=== PATIENT | male | born 1980 | race Caucasian/White ===

== ENCOUNTER 2020-11-06 09:33 | Emergency (ER) | payer BC, SELFPAY ==
[~2020-11-06] VITALS: Ht 175.3 cm; Wt 81.5 kg
[~2020-11-06 09:33] MED LIST: LASI80TA3 PO; SPIR100T3 PO
[2020-11-06 11:32] LABS: BASO % 0.6 % (0.0-1.0); EOS # 0.1 10^3/uL (0.0-0.5); EOS % 0.8 % (0.0-3.0); HEMATOCRIT 32.9 % (42.0-52.0); LYMPH # 0.5 10^3/uL (1.5-5.0); LYMPH % 8.5 % (24.0-44.0); MEAN CORPUSCULAR HEMOGLOBIN 32.4 pg (27.0-33.0); MEAN CORPUSCULAR HGB CONC 33.4 g/dl (32.0-36.5); MEAN CORPUSCULAR VOLUME 97.1 fl (80.0-96.0); MONO # 0.7 10^3/uL (0.0-0.8); NEUTROPHILS # 4.9 10^3/uL (1.5-8.5); NEUTROPHILS % 78.6 % (36.0-66.0); PLATELET COUNT, AUTOMATED 136 10^3/uL (150-450); RED BLOOD COUNT 3.39 10^6/uL (4.30-6.10); WHITE BLOOD COUNT 6.2 10^3/uL (4.0-10.0)
[2020-11-06 12:04] LABS: BLOOD UREA NITROGEN 11 MG/DL (7-18); CALCIUM LEVEL 7.6 MG/DL (8.5-10.1); CARBON DIOXIDE LEVEL 23 MEQ/L (21-32); CHLORIDE LEVEL 105 MEQ/L (98-107); CREATININE FOR GFR 0.61 MG/DL (0.70-1.30); GLOMERULAR FILTRATION RATE > 60.0 (>60); GLUCOSE, FASTING 91 MG/DL (70-100); POTASSIUM SERUM 4.4 MEQ/L (3.5-5.1); SODIUM LEVEL 134 MEQ/L (136-145)
[2020-11-06 12:05] LABS: ALBUMIN 2.6 GM/DL (3.2-5.2); ALT/SGPT 41 U/L (12-78); BILIRUBIN,DIRECT 1.5 MG/DL (0.0-0.2); BILIRUBIN,TOTAL 2.5 MG/DL (0.2-1.0); LIPASE 295 U/L (73-393); TOTAL PROTEIN 6.7 GM/DL (6.4-8.2)
[2020-11-06] MEDS ORDERED: ISOVUE-370 76% 100ML VIAL As Ordered ONE (12:08)
--- NOTE | 2020-11-06 12:41 | REP ---
INDICATION: ascites/pain. COMPARISON: None. TECHNIQUE: Abdomen/pelvis CT with IV contrast, without bowel contrast. FINDINGS: There is a huge volume of abdominal and pelvic ascites. The hepatic margin has a nodular appearance compatible with cirrhosis. The portal vein measures 2.1 cm in diameter compatible with portal hypertension. No hepatic masses are identified. The visualized lower lung sheppard demonstrate atelectasis inferiorly in the right middle lobe, inferiorly in the lingula and in the left lower lobe. There are no pleural effusions. The gallbladder is packed with numerous tiny calculi. No biliary duct dilatation is identified. The pancreas and spleen are unremarkable. The adrenals and kidneys are unremarkable except for a punctate nonobstructive right renal lower pole calculus. The abdominal aorta is unremarkable. There is no periaortic adenopathy, mass or retroperitoneal fluid. Pelvis: There is a large volume of ascites. The bladder is unremarkable. There is no adenopathy. There is no bowel distention or obstruction. There is diffuse wall thickening of the small bowel, likely secondary to the ascites. IMPRESSION: Large volume of ascites. Hepatic cirrhosis. Distended portal vein compatible with portal hypertension. Innumerable tiny calculi packing the gallbladder. No biliary duct dilatation. Nonobstructive right renal lower pole punctate calculus. Focal zones of atelectasis the visualized lower lung sheppard. Wall thickening of the small bowel, likely secondary to the ascites. <Electronically signed by Noel Morales > 11/06/20 [id number]
[2020-11-06] MEDS ORDERED: SODIUM BICARBONATE 8.4% INJ 50MEQ 50 ML VIAL As Ordered ONE (16:30)
[2020-11-06 19:51] VITALS: BP 115/71
[2020-11-06 20:24] VITALS: BP 113/62
--- NOTE | 2020-11-07 07:51 | REP ---
INDICATION: ascites The patient has a history of ascites COMPARISON: None. TECHNIQUE: The procedure was performed by LYNDON Greenberg, under the direct supervision of Dr. Rajan The risks and benefits of the procedure were explained to the patient and an informed consent was obtained both verbally and written. Directly prior to the start of the procedure a formal time-out was completed in the procedure room. The largest pocket of fluid was localized in the left flank using ultrasound guidance. The skin was prepped and draped in a sterile fashion. Eleven ML of buffered lidocaine was used as a local anesthetic. An 8-Scottish multi side-hole catheter was inserted using trocar technique. FINDINGS: 19721 mL of yellow ascites was removed and discarded. The patient tolerated the procedure well and there were no immediate complications. After the appropriate amount of monitored convalescence, the patient was discharged from the department. IMPRESSION: Ultras[place] [address] mL of yellow ascites. <Electronically signed by Loni Langston > 11/07/20 0744 <Electronically signed by Domingo Rajan > 11/07/20 0745
== END 2020-11-06 20:44 | disposition home or self-care (01) ==
LOC: M ED 09:33
DX: R18.8 Other ascites (principal); R56.9 Unspecified convulsions; K74.60 Unspecified cirrhosis of liver; N20.0 Calculus of kidney; Z91.030 Bee allergy status
CPT/HCPCS: 36415; 74177; 80048; 80076; 83690; 85025; 96365; 99285; P9047; Q9967; U0002

== ENCOUNTER → 2020-11-21 | Outpatient (CLI) | payer BC ==
[~2020-11-21] MED LIST changes: +SODIUM BICARBONATE 8.4% INJ 50MEQ 50 ML VIAL As Ordered ONE
[2020-11-21 11:34] LABS: BASO # 0.1 10^3/uL (0.0-0.2); BASO % 0.8 % (0.0-1.0); EOS # 0.1 10^3/uL (0.0-0.5); EOS % 1.3 % (0.0-3.0); HEMOGLOBIN 10.8 g/dl (13.5-17.5); LYMPH # 0.6 10^3/uL (1.5-5.0); LYMPH % 8.1 % (24.0-44.0); MEAN CORPUSCULAR HEMOGLOBIN 32.9 pg (27.0-33.0); MEAN CORPUSCULAR HGB CONC 34.8 g/dl (32.0-36.5); MEAN CORPUSCULAR VOLUME 94.5 fl (80.0-96.0); MONO # 0.9 10^3/uL (0.0-0.8); MONO % 12.1 % (2.0-8.0); NEUTROPHILS # 5.5 10^3/uL (1.5-8.5); PLATELET COUNT, AUTOMATED 152 10^3/uL (150-450); RED BLOOD COUNT 3.28 10^6/uL (4.30-6.10); WHITE BLOOD COUNT 7.2 10^3/uL (4.0-10.0)
[2020-11-21 11:46] LABS: INR 1.58; PROTHROMBIN TIME 19.3 SECONDS (12.7-14.5)
[2020-11-21 11:47] LABS: PARTIAL THROMBOPLASTIN TIME 38.9 SECONDS (25.9-37.0)
[2020-11-21 12:07] LABS: ALBUMIN 2.1 GM/DL (3.2-5.2); BILIRUBIN,DIRECT 1.3 MG/DL (0.0-0.2); TOTAL PROTEIN 6.9 GM/DL (6.4-8.2)
[2020-11-21 12:36] VITALS: BP 117/67
[2020-11-21 13:33] LABS: APPEARANCE, BODY FLUID CLEAR (CLEAR); ASCITES FL COLOR YELLOW (COLORLESS); SOURCE, BODY FLUID ASCITES
[2020-11-21 14:12] LABS: SOURCE, BODY FLUID ALBUMIN ASCITES; SOURCE, BODY FLUID TOT PROTEIN ASCITES; TOTAL PROTEIN, BODY FLUID 0.8 G/DL (NOT ESTABLISHED)
--- NOTE | 2020-11-21 15:58 | REP ---
INDICATION: ASCITES The patient has a history of ascites COMPARISON: None. TECHNIQUE: The procedure was performed by LYNDON Greenberg, under the direct supervision of Dr. Rajan The risks and benefits of the procedure were explained to the patient and an informed consent was obtained both verbally and written. Directly prior to the start of the procedure a formal time-out was completed in the procedure room. The largest pocket of fluid was localized in the right flank using ultrasound guidance. The skin was prepped and draped in a sterile fashion. Eleven ML of buffered lidocaine was used as a local anesthetic. An 8-Persian multi side-hole catheter was inserted using trocar technique. FINDINGS: 91481 mL of ascites was removed in total, 1300 was sent to the laboratory for further analysis, and the remaining was discarded. The patient tolerated the procedure well and there were no immediate complications. After the appropriate amount of monitored convalescence, the patient was discharged from the department. IMPRESSION: [place] [address] mL of yellow ascites. <Electronically signed by Loni Langston > 11/21/20 1542 <Electronically signed by Domingo Rajan > 11/21/20 2596
== END ==
LOC: M IRPRO 10:46
DX: K70.31 Alcoholic cirrhosis of liver with ascites (principal)
CPT/HCPCS: 49083; 80076; 82042; 84157; 85025; 85610; 85730; 87070; 87205; 89051; 96374; P9047

== ENCOUNTER → 2020-12-07 | Outpatient (CLI) | payer BC ==
[~2020-12-07] MED LIST changes: +LIDOCAINE 1% MDV 20ML VIAL As Ordered ONE
[2020-12-07 15:36] LABS: APPEARANCE, BODY FLUID CLEAR (CLEAR); ASCITES FL COLOR YELLOW (COLORLESS); SOURCE, BODY FLUID ASCITES
[2020-12-07 15:44] LABS: SOURCE, BODY FLUID ALBUMIN ASCITES; SOURCE, BODY FLUID TOT PROTEIN ASCITES
[2020-12-07 16:59] VITALS: BP 121/73
--- NOTE | 2020-12-07 17:25 | REP ---
INDICATION: ASCITES The patient has a history of ascites COMPARISON: None. TECHNIQUE: The procedure was performed by Dr. Stapleton, under the personal supervision of LYNDON Greenberg, under the direct supervision of Dr. Mohan The risks and benefits of the procedure were explained to the patient and an informed consent was obtained both verbally and written. Directly prior to the start of the procedure a formal time-out was completed in the procedure room. The largest pocket of fluid was localized in the right flank using ultrasound guidance. The skin was prepped and draped in a sterile fashion. Eleven ML of buffered lidocaine was used as a local anesthetic. An 8-Greek multi side-hole catheter was inserted using trocar technique. FINDINGS: 00925 mL of yellow ascites was removed in total, 1250 mL was sent to the laboratory for further analysis, and the rest was discarded. The patient tolerated the procedure well and there were no immediate complications. After the appropriate amount of monitored convalescence, the patient was discharged from the department. IMPRESSION: [place]tras[place] [address] mL of yellow ascites. <Electronically signed by Loni Langston > 12/07/20 1650 <Electronically signed by Noel Mohan > 12/07/20 [id number]
== END ==
LOC: M IRPRO 13:07
DX: K70.31 Alcoholic cirrhosis of liver with ascites (principal)
CPT/HCPCS: 49083; 82042; 84157; 87070; 87205; 89051; 96365; P9047

== ENCOUNTER → 2020-12-26 | Outpatient (CLI) | payer BC ==
[2020-12-26] VITALS (7 sets, daily range): BP systolic 95–104; BP diastolic 51–62
[~2020-12-26] MED LIST changes: +ACID1TAB PO; +AMOX875T2 PO; +FURO40TA2 PO; +LACT10SO3 PO; +LEVE250T5 PO; -LIDOCAINE 1% MDV 20ML VIAL As Ordered ONE; +POTA1TAB14 PO; -SODIUM BICARBONATE 8.4% INJ 50MEQ 50 ML VIAL As Ordered ONE; +THERTAB21 PO; +VITA50TA47 PO
[2020-12-26 10:26] LABS: BASO # 0.1 10^3/uL (0.0-0.2); BASO % 1.3 % (0.0-1.0); EOS # 0.1 10^3/uL (0.0-0.5); EOS % 1.8 % (0.0-3.0); HEMATOCRIT 23.3 % (42.0-52.0); HEMOGLOBIN 7.8 g/dl (13.5-17.5); LYMPH # 0.6 10^3/uL (1.5-5.0); LYMPH % 12.3 % (24.0-44.0); MEAN CORPUSCULAR HEMOGLOBIN 34.1 pg (27.0-33.0); MEAN CORPUSCULAR HGB CONC 33.5 g/dl (32.0-36.5); MEAN CORPUSCULAR VOLUME 101.7 fl (80.0-96.0); MONO # 0.7 10^3/uL (0.0-0.8); MONO % 15.5 % (2.0-8.0); NEUTROPHILS % 68.2 % (36.0-66.0); PLATELET COUNT, AUTOMATED 104 10^3/uL (150-450); RED BLOOD COUNT 2.29 10^6/uL (4.30-6.10); WHITE BLOOD COUNT 4.5 10^3/uL (4.0-10.0)
[2020-12-26 10:37] LABS: INR 2.41; PROTHROMBIN TIME 26.7 SECONDS (12.7-14.5)
[2020-12-26 10:38] LABS: PARTIAL THROMBOPLASTIN TIME 48.4 SECONDS (25.9-37.0)
[2020-12-26 10:45] LABS: ALBUMIN 3.3 GM/DL (3.2-5.2); BILIRUBIN,DIRECT 3.2 MG/DL (0.0-0.2); BILIRUBIN,TOTAL 5.9 MG/DL (0.2-1.0); TOTAL PROTEIN 6.5 GM/DL (6.4-8.2)
[2020-12-26 11:49] LABS: SOURCE, BODY FLUID ASCITES
[2020-12-26 11:50] LABS: APPEARANCE, BODY FLUID CLOUDY (CLEAR); ASCITES FL COLOR YELLOW (COLORLESS)
[2020-12-26 11:59] LABS: SOURCE, BODY FLUID ALBUMIN ASCITES; SOURCE, BODY FLUID TOT PROTEIN ASCITES; TOTAL PROTEIN, BODY FLUID 2.1 G/DL (NOT ESTABLISHED)
--- NOTE | 2020-12-26 16:43 | REP ---
INDICATION: ALCHOLIC CIRRHOSIS OF LIVER W/ASCITES. COMPARISON: None. TECHNIQUE: The procedure was performed under the direct supervision of Dr. Rajan. The risks and benefits of the procedure were explained to the patient and informed consent was obtained. The largest pocket of fluid was localized in the right flank using ultrasound guidance. The skin was prepped and draped in a sterile fashion. 5 mL of 1% lidocaine was used as a local anesthetic. An 8-Georgian multi side-hole catheter was inserted using trocar technique.6750 mL of cortney fluid was withdrawn with a sample sent to the lab for analysis. Estimated blood loss: Less than 1 mL The patient tolerated the procedure well and there were no immediate complications. After the appropriate amount of monitored convalescence, the patient was discharged from the department. FINDINGS: None IMPRESSION: Ultrasound-guided paracentesis [id number] mL of cortney fluid. <Electronically signed by Loki Larios > 12/26/20 7247 <Electronically signed by Domingo Rajan > 12/26/20 [id number]
== END ==
LOC: M IRPRO 09:15
PROVIDERS: ATTEND Internal Medicine Gastroenterology
DX: K70.31 Alcoholic cirrhosis of liver with ascites (principal)
CPT/HCPCS: 49083; 80076; 82042; 84157; 85025; 85610; 85730; 87070; 87205; 89051; 96365; P9047

== ENCOUNTER → 2021-01-03 | Outpatient (CLI) | payer BC ==
[~2021-01-03] MED LIST changes: +LIDOCAINE 1% MDV 20ML VIAL As Ordered ONE; +SODIUM BICARBONATE 8.4% INJ 50MEQ 50 ML VIAL As Ordered ONE
[2021-01-03 11:03] VITALS: BP 104/55
[2021-01-03 11:19] VITALS: BP 97/55
[2021-01-03 11:50] VITALS: BP 97/56
[2021-01-03 12:42] VITALS: BP 100/56
--- NOTE | 2021-01-03 12:54 | REP ---
INDICATION: CIRRHOSIS The patient has a history of ascites COMPARISON: None. TECHNIQUE: The procedure was performed by LYNDON Greenberg, under the direct supervision of Dr. Rajan The risks and benefits of the procedure were explained to the patient and an informed consent was obtained both verbally and written. Directly prior to the start of the procedure a formal time-out was completed in the procedure room. The largest pocket of fluid was localized in the right flank using ultrasound guidance. The skin was prepped and draped in a sterile fashion. Eleven ML of buffered lidocaine was used as a local anesthetic. An 8-Frisian multi side-hole catheter was inserted using trocar technique. FINDINGS: 8550 mL of cloudy yellow ascites was removed and discarded. The patient tolerated the procedure well and there were no immediate complications. After the appropriate amount of monitored convalescence, the patient was discharged from the department. IMPRESSION: Ultrasound-guided paracentesis with the removal of 8550 mL of cloudy yellow ascites. <Electronically signed by Loni Langston > 01/03/21 1203 <Electronically signed by Domingo Rajan > 01/03/21 1257
== END ==
LOC: M IRPRO 09:35
PROVIDERS: ATTEND Internal Medicine Gastroenterology
DX: K70.31 Alcoholic cirrhosis of liver with ascites (principal)
CPT/HCPCS: 49083; 96365; P9047

== ENCOUNTER → 2021-01-10 | Outpatient (CLI) | payer BC ==
[~2021-01-10] MED LIST changes: -LIDOCAINE 1% MDV 20ML VIAL As Ordered ONE; -SODIUM BICARBONATE 8.4% INJ 50MEQ 50 ML VIAL As Ordered ONE
[2021-01-10 14:21] VITALS: BP 108/57
[2021-01-10 14:32] VITALS: BP 101/56
--- NOTE | 2021-01-10 17:30 | REP ---
INDICATION: CIRRHOSIS W/ ASCITES. COMPARISON: None. TECHNIQUE: The procedure was performed under the direct supervision of Dr. Mohan. The risks and benefits of the procedure were explained to the patient and informed consent was obtained. The largest pocket of fluid was localized in the left flank using ultrasound guidance. The skin was prepped and draped in a sterile fashion. 4 mL of 1% lidocaine was used as a local anesthetic. An 8-Yakut multi side-hole catheter was inserted using trocar technique.7500 mL of yellow fluid was withdrawn and discarded. Estimated blood loss: Less than 1 mL The patient tolerated the procedure well and there were no immediate complications. After the appropriate amount of monitored convalescence, the patient was discharged from the department. FINDINGS: None IMPRESSION: Ultrasound-guided paracentesis [id number] mL of yellow fluid. <Electronically signed by Loki Larios > 01/10/21 1436 <Electronically signed by Noel Mohan > 01/10/21 [id number]
== END ==
LOC: M IRPRO 12:51
PROVIDERS: ATTEND Internal Medicine Gastroenterology
DX: K70.31 Alcoholic cirrhosis of liver with ascites (principal)
CPT/HCPCS: 49083; 96365; P9047

== ENCOUNTER → 2021-01-21 | Outpatient (CLI) | payer BC ==
[2021-01-21 10:30] VITALS: BP 119/70
[2021-01-21 10:41] VITALS: BP 114/67
[2021-01-21 10:48] VITALS: BP 132/81
[2021-01-21 11:05] VITALS: BP 126/66
[2021-01-21 11:06] LABS: APPEARANCE, BODY FLUID HAZY (CLEAR); ASCITES FL COLOR YELLOW (COLORLESS); SOURCE, BODY FLUID ASCITES
[2021-01-21 11:20] VITALS: BP 138/65
[2021-01-21 11:29] LABS: SOURCE, BODY FLUID ALBUMIN ASCITES; SOURCE, BODY FLUID TOT PROTEIN ASCITES; TOTAL PROTEIN, BODY FLUID 0.6 G/DL (NOT ESTABLISHED)
[2021-01-21 11:32] VITALS: BP 134/63
--- NOTE | 2021-01-21 19:02 | REP ---
INDICATION: CIRRHOSIS W/ ASCITES The patient has a history of cirrhosis COMPARISON: None. TECHNIQUE: The procedure was performed by LYNDON Jon, under the direct supervision of Dr. Mohan The risks and benefits of the procedure were explained to the patient and an informed consent was obtained both verbally and written. Directly prior to the start of the procedure a formal time-out was completed in the procedure room. The largest pocket of fluid was localized in the right lower quadrant using ultrasound guidance. The skin was prepped and draped in a sterile fashion. Six ML of 1% lidocaine 10 mg/ml was used as a local anesthetic. An 8-Ethiopian multi side-hole catheter was inserted using trocar technique. FINDINGS: 12,350 mL yellow fluid were removed from the patient. The patient tolerated the procedure well and there were no immediate complications. After the appropriate amount of monitored convalescence, the patient was discharged from the department. IMPRESSION: Technically successful paracentesis yielding 12,350 mL of yellow fluid. This fluid was sent to the lab for further evaluation. <Electronically signed by Juana Escamilla > 01/21/21 [id number] <Electronically signed by Noel Mohan > 01/21/21 0119
== END ==
LOC: M IRPRO 08:43
PROVIDERS: ATTEND Internal Medicine Gastroenterology
DX: K70.31 Alcoholic cirrhosis of liver with ascites (principal)
CPT/HCPCS: 49083; 82042; 84157; 87070; 87205; 89051; 96365; P9047

== ENCOUNTER → 2021-01-30 | Outpatient (CLI) | payer BC ==
[2021-01-30 14:43] LABS: BASO % 0.5 % (0.0-1.0); EOS # 0.1 10^3/uL (0.0-0.5); EOS % 1.1 % (0.0-3.0); HEMATOCRIT 26.2 % (42.0-52.0); HEMOGLOBIN 8.6 g/dl (13.5-17.5); LYMPH # 0.6 10^3/uL (1.5-5.0); LYMPH % 6.8 % (24.0-44.0); MEAN CORPUSCULAR HEMOGLOBIN 33.1 pg (27.0-33.0); MEAN CORPUSCULAR HGB CONC 32.8 g/dl (32.0-36.5); MEAN CORPUSCULAR VOLUME 100.8 fl (80.0-96.0); MONO # 0.8 10^3/uL (0.0-0.8); MONO % 8.8 % (2.0-8.0); NEUTROPHILS # 7.2 10^3/uL (1.5-8.5); NEUTROPHILS % 81.9 % (36.0-66.0); PLATELET COUNT, AUTOMATED 132 10^3/uL (150-450); WHITE BLOOD COUNT 8.8 10^3/uL (4.0-10.0)
[2021-01-30 14:51] LABS: INR 1.81; PROTHROMBIN TIME 21.4 SECONDS (12.7-14.5)
[2021-01-30 14:52] LABS: PARTIAL THROMBOPLASTIN TIME 44.1 SECONDS (25.9-37.0)
[2021-01-30 15:10] LABS: ALBUMIN 2.4 GM/DL (3.2-5.2); BILIRUBIN,DIRECT 2.3 MG/DL (0.0-0.2); BILIRUBIN,TOTAL 3.6 MG/DL (0.2-1.0); TOTAL PROTEIN 6.3 GM/DL (6.4-8.2)
[2021-01-30 15:40] VITALS: BP 132/78
[2021-01-30 15:50] VITALS: BP 125/53
[2021-01-30 15:58] VITALS: BP 115/67
--- NOTE | 2021-01-30 17:26 | REP ---
INDICATION: ASCITES. COMPARISON: None. TECHNIQUE: The procedure was performed under the direct supervision of Dr. Mohan. The risks and benefits of the procedure were explained to the patient and informed consent was obtained. The largest pocket of fluid was localized in the left flank using ultrasound guidance. The skin was prepped and draped in a sterile fashion. 6 mL of 1% lidocaine was used as a local anesthetic. An 8-Lao multi side-hole catheter was inserted using trocar technique.7450 mL of yellow fluid was withdrawn with a sample sent to the lab for analysis. Estimated blood loss: Less than 1 mL The patient tolerated the procedure well and there were no immediate complications. After the appropriate amount of monitored convalescence, the patient was discharged from the department. FINDINGS: None IMPRESSION: Ultrasound-guided paracentesis [id number] mL of yellow fluid. <Electronically signed by Loki Larios > 01/30/21 1720 <Electronically signed by Noel Mohan > 01/30/21 1724
== END ==
LOC: M IRPRO 13:21
PROVIDERS: ATTEND Internal Medicine Gastroenterology
DX: K70.31 Alcoholic cirrhosis of liver with ascites (principal)
CPT/HCPCS: 36415; 49083; 80076; 85025; 85610; 85730; 96374; P9047

== ENCOUNTER → 2021-02-08 | Outpatient (CLI) | payer BC ==
[2021-02-08 14:02] VITALS: BP 99/67
[2021-02-08 14:11] VITALS: BP 126/84
[2021-02-08 14:22] VITALS: BP 125/76
[2021-02-08 14:28] VITALS: BP 108/66
[2021-02-08 15:10] LABS: SOURCE, BODY FLUID ALBUMIN ASCITES; SOURCE, BODY FLUID TOT PROTEIN ASCITES; TOTAL PROTEIN, BODY FLUID 0.7 G/DL (NOT ESTABLISHED)
[2021-02-08 15:16] LABS: APPEARANCE, BODY FLUID CLEAR (CLEAR); ASCITES FL COLOR PALE YELLOW (COLORLESS); SOURCE, BODY FLUID ASCITES
--- NOTE | 2021-02-08 16:34 | REP ---
INDICATION: CIRRHOSIS W/ ASCITES The patient has a history of ascites COMPARISON: None. TECHNIQUE: The procedure was performed by LYNDON Jon, under the direct supervision of Dr. Mohan The risks and benefits of the procedure were explained to the patient and an informed consent was obtained both verbally and written. Directly prior to the start of the procedure a formal time-out was completed in the procedure room. The largest pocket of fluid was localized in the right lower quadrant using ultrasound guidance. The skin was prepped and draped in a sterile fashion. Ten ML of 1% lidocaine 10 mg/ml was used as a local anesthetic. An 8-Qatari multi side-hole catheter was inserted using trocar technique. FINDINGS: The largest pocket of fluid was localized in the right lower quadrant using ultrasound. 7850 mL of clear yellow fluid was removed. The patient tolerated the procedure well and there were no immediate complications. After the appropriate amount of monitored convalescence, the patient was discharged from the department. IMPRESSION: Technically successful paracentesis yielding 8750 mL of clear yellow fluid <Electronically signed by Juana Escamilla > 02/08/21 1509 <Electronically signed by Noel Mohan > 02/08/21 1630
== END ==
LOC: M IRPRO 13:04
PROVIDERS: ATTEND Internal Medicine Gastroenterology
DX: K70.31 Alcoholic cirrhosis of liver with ascites (principal)
CPT/HCPCS: 49083; 82042; 84157; 87070; 87205; 89051; 96365; P9047

== ENCOUNTER → 2021-03-07 | Outpatient (CLI) | payer BC ==
[2021-03-07] VITALS (7 sets, daily range): BP systolic 100–108; BP diastolic 59–66
[2021-03-07 10:03] LABS: HEMATOCRIT 23.1 % (42.0-52.0); HEMOGLOBIN 7.8 g/dl (13.5-17.5); MEAN CORPUSCULAR HEMOGLOBIN 31.3 pg (27.0-33.0); MEAN CORPUSCULAR HGB CONC 33.8 g/dl (32.0-36.5); MEAN CORPUSCULAR VOLUME 92.8 fl (80.0-96.0); PLATELET COUNT, AUTOMATED 106 10^3/uL (150-450); RED BLOOD COUNT 2.49 10^6/uL (4.30-6.10); WHITE BLOOD COUNT 5.2 10^3/uL (4.0-10.0)
[2021-03-07 10:13] LABS: INR 1.73; PROTHROMBIN TIME 20.7 SECONDS (12.7-14.5)
[2021-03-07 10:49] LABS: ALBUMIN 2.3 GM/DL (3.2-5.2); ALT/SGPT 34 U/L (12-78); BILIRUBIN,TOTAL 1.8 MG/DL (0.2-1.0); BLOOD UREA NITROGEN 14 MG/DL (7-18); CALCIUM LEVEL 7.7 MG/DL (8.5-10.1); CARBON DIOXIDE LEVEL 22 MEQ/L (21-32); CHLORIDE LEVEL 102 MEQ/L (98-107); CREATININE FOR GFR 1.26 MG/DL (0.70-1.30); GLOMERULAR FILTRATION RATE > 60.0 (>60); GLUCOSE, FASTING 128 MG/DL (70-100); POTASSIUM SERUM 3.7 MEQ/L (3.5-5.1); SODIUM LEVEL 132 MEQ/L (136-145); TOTAL PROTEIN 6.3 GM/DL (6.4-8.2)
[2021-03-07 11:12] LABS: APPEARANCE, BODY FLUID HAZY (CLEAR); ASCITES FL COLOR YELLOW (COLORLESS); SOURCE, BODY FLUID ASCITES
[2021-03-07 12:22] LABS: SOURCE, BODY FLUID ALBUMIN ASCITES; SOURCE, BODY FLUID TOT PROTEIN ASCITES; TOTAL PROTEIN, BODY FLUID 0.8 G/DL (NOT ESTABLISHED)
== END ==
LOC: M IRPRO 08:30
PROVIDERS: ATTEND Internal Medicine Gastroenterology
DX: K70.31 Alcoholic cirrhosis of liver with ascites (principal)
CPT/HCPCS: 49083; 80053; 82042; 82105; 84157; 85027; 85610; 87070; 87205; 89051; 96365; P9047

== ENCOUNTER → 2021-08-30 | Outpatient (CLI) | payer BC ==
[~2021-08-30] MED LIST changes: +CIPR-249 PO; +ELIQ2.5T PO; +FOLI1TAB11 PO; +GNP250TA9 PO; +KEPP1TAB PO; +LASI20TA3 PO; +ONDA8TAB8 PO; +SPIR-10 PO; +THERTAB52 PO; +TRAM50TA2 PO
[2021-08-30 10:07] VITALS: BP 105/63
[2021-08-30 12:13] LABS: SOURCE, BODY FLUID ALBUMIN ASCITES
[2021-08-30 12:18] LABS: SOURCE, BODY FLUID TOT PROTEIN ASCITES
== END ==
LOC: M IRPRO 09:17
PROVIDERS: ATTEND Internal Medicine Gastroenterology
DX: K70.31 Alcoholic cirrhosis of liver with ascites (principal)

== ENCOUNTER → 2021-09-06 | Outpatient (CLI) | payer BC ==
[2021-09-06] VITALS (7 sets, daily range): BP systolic 107–120; BP diastolic 55–71
== END ==
LOC: M IRPRO 09:36
PROVIDERS: ATTEND Internal Medicine Gastroenterology
DX: K70.31 Alcoholic cirrhosis of liver with ascites (principal)
CPT/HCPCS: 49083; 96365; 96366; P9047

== ENCOUNTER → 2021-09-17 | Outpatient (CLI) | payer BC ==
[2021-09-17 08:52] LABS: APPEARANCE, BODY FLUID CLEAR (CLEAR); ASCITES FL COLOR YELLOW (COLORLESS); SOURCE, BODY FLUID ASCITES
[2021-09-17 08:53] VITALS: BP 114/62
[2021-09-17 08:58] VITALS: BP 123/66
[2021-09-17 09:09] VITALS: BP 120/67
[2021-09-17 09:10] VITALS: BP 123/87
[2021-09-17 09:20] LABS: SOURCE, BODY FLUID ALBUMIN ASCITES; SOURCE, BODY FLUID TOT PROTEIN ASCITES
== END ==
LOC: M IRPRO 07:31
PROVIDERS: ATTEND Internal Medicine Gastroenterology
DX: K70.31 Alcoholic cirrhosis of liver with ascites (principal)
CPT/HCPCS: 49083; 82042; 84157; 87070; 87076; 87205; 89051; 96365; P9047

== ENCOUNTER → 2021-09-19 | Outpatient (CLI) | payer BC | LOC: M OUTALCOH 09:42 | PROVIDERS: ATTEND Psychiatry & Neurology Psychiatry | DX: F10.10 Alcohol abuse, uncomplicated (principal) ==

== ENCOUNTER → 2021-09-26 | Outpatient (RCR) | payer BC | LOC: M OUTALCOH 14:04 | PROVIDERS: ATTEND Psychiatry & Neurology Psychiatry | DX: F10.20 Alcohol dependence, uncomplicated (principal); F12.10 Cannabis abuse, uncomplicated ==

== ENCOUNTER → 2021-09-27 | Outpatient (CLI) | payer BC, OTHER ==
[2021-09-27] VITALS (7 sets, daily range): BP systolic 91–110; BP diastolic 53–66
[~2021-09-27] MED LIST changes: +LIDOCAINE 1% MDV 20ML VIAL As Ordered ONE
[2021-09-27 09:29] LABS: SOURCE, BODY FLUID ALBUMIN ASCITES; SOURCE, BODY FLUID TOT PROTEIN ASCITES; TOTAL PROTEIN, BODY FLUID 1.1 G/DL (NOT ESTABLISHED)
== END ==
LOC: M IRPRO 07:31
PROVIDERS: ATTEND Internal Medicine Gastroenterology
DX: K70.31 Alcoholic cirrhosis of liver with ascites (principal)
CPT/HCPCS: 49083; 82042; 84157; 87070; 87205; 96365; P9047

== ENCOUNTER → 2021-10-11 | Outpatient (CLI) | payer BC ==
[2021-10-11] VITALS (11 sets, daily range): BP systolic 100–106; BP diastolic 56–61
[~2021-10-11] MED LIST changes: -LIDOCAINE 1% MDV 20ML VIAL As Ordered ONE
[2021-10-11 09:16] LABS: APPEARANCE, BODY FLUID CLEAR (CLEAR); ASCITES FL COLOR PALE YELLOW (COLORLESS); SOURCE, BODY FLUID ASCITES
[2021-10-11 10:03] LABS: SOURCE, BODY FLUID ALBUMIN ASCITES; SOURCE, BODY FLUID TOT PROTEIN ASCITES; TOTAL PROTEIN, BODY FLUID 1.1 G/DL (NOT ESTABLISHED)
== END ==
LOC: M IRPRO 07:27
PROVIDERS: ATTEND Internal Medicine Gastroenterology
DX: R18.8 Other ascites (principal)
CPT/HCPCS: 49083; 82042; 84157; 87070; 87205; 89051; 96365; P9047

== ENCOUNTER 2021-10-23 14:00 | Outpatient (RCR) | payer BC | END 2021-10-27 | LOC: M OUTALCOH 14:00 | PROVIDERS: ATTEND Psychiatry & Neurology Psychiatry | DX: F10.20 Alcohol dependence, uncomplicated (principal); F12.10 Cannabis abuse, uncomplicated ==

== ENCOUNTER → 2021-10-25 | Outpatient (CLI) | payer BC ==
[2021-10-25] VITALS (7 sets, daily range): BP systolic 106–118; BP diastolic 63–72
[2021-10-25 09:28] LABS: APPEARANCE, BODY FLUID CLEAR (CLEAR); ASCITES FL COLOR YELLOW (COLORLESS); SOURCE, BODY FLUID ASCITES
[2021-10-25 09:37] LABS: SOURCE, BODY FLUID ALBUMIN ASCITES; SOURCE, BODY FLUID TOT PROTEIN ASCITES; TOTAL PROTEIN, BODY FLUID 1.1 G/DL (NOT ESTABLISHED)
== END ==
LOC: M IRPRO 07:29
PROVIDERS: ATTEND Internal Medicine Gastroenterology
DX: R18.8 Other ascites (principal)
CPT/HCPCS: 49083; 82042; 84157; 87070; 87205; 89051; 96365; P9047

== ENCOUNTER 2021-11-08 07:55 | Emergency (ER) | payer BC ==
[~2021-11-08] VITALS: Ht 175.3 cm; Wt 70.8 kg
[2021-11-08 08:02] VITALS: BP 106/67
[2021-11-08 09:33] LABS: BASO % 1.1 % (0.0-1.0); EOS # 0.2 10^3/uL (0.0-0.5); EOS % 4.9 % (0.0-3.0); HEMATOCRIT 32.3 % (42.0-52.0); HEMOGLOBIN 10.5 g/dl (13.5-17.5); LYMPH # 0.5 10^3/uL (1.5-5.0); LYMPH % 13.3 % (24.0-44.0); MEAN CORPUSCULAR HEMOGLOBIN 28.7 pg (27.0-33.0); MEAN CORPUSCULAR HGB CONC 32.5 g/dl (32.0-36.5); MEAN CORPUSCULAR VOLUME 88.3 fl (80.0-96.0); MONO # 0.6 10^3/uL (0.0-0.8); MONO % 16.3 % (2.0-8.0); NEUTROPHILS # 2.4 10^3/uL (1.5-8.5); NEUTROPHILS % 64.1 % (36.0-66.0); PLATELET COUNT, AUTOMATED 107 10^3/uL (150-450); RED BLOOD COUNT 3.66 10^6/uL (4.30-6.10); WHITE BLOOD COUNT 3.7 10^3/uL (4.0-10.0)
[2021-11-08 09:55] LABS: ERYTHROCYTE SEDIMENTATION RATE 16 mm/hr (0-15)
[2021-11-08 10:11] LABS: ALBUMIN 2.7 GM/DL (3.2-5.2); ALT/SGPT 28 U/L (12-78); BILIRUBIN,DIRECT 0.6 MG/DL (0.0-0.2); BILIRUBIN,TOTAL 0.9 MG/DL (0.2-1.0); BLOOD UREA NITROGEN 19 MG/DL (7-18); C REACTIVE PROTEIN QUANTITATIV 2.85 MG/DL (0.00-0.30); CALCIUM LEVEL 8.3 MG/DL (8.5-10.1); CARBON DIOXIDE LEVEL 25 MEQ/L (21-32); CHLORIDE LEVEL 107 MEQ/L (98-107); CREATININE FOR GFR 0.84 MG/DL (0.70-1.30); GLOMERULAR FILTRATION RATE > 60.0 (>60); GLUCOSE, FASTING 95 MG/DL (70-100); LIPASE 446 U/L (73-393); POTASSIUM SERUM 5.1 MEQ/L (3.5-5.1); SODIUM LEVEL 137 MEQ/L (136-145); TOTAL PROTEIN 6.4 GM/DL (6.4-8.2)
== END 2021-11-08 10:31 | disposition left against medical advice (07) ==
LOC: M ED 07:55
DX: Z53.21 Procedure and treatment not carried out due to patient leaving prior to being seen by health care provider (principal)

== ENCOUNTER → 2021-11-15 | Outpatient (CLI) | payer BC ==
[~2021-11-15] MED LIST changes: +LIDOCAINE 1% MDV 20ML VIAL As Ordered ONE
[2021-11-15 12:24] VITALS: BP 101/65
[2021-11-15 12:31] VITALS: BP 105/61
[2021-11-15 12:38] VITALS: BP 115/68
[2021-11-15 12:42] LABS: SOURCE, BODY FLUID ASCITES
[2021-11-15 12:43] LABS: APPEARANCE, BODY FLUID HAZY (CLEAR); ASCITES FL COLOR PALE YELLOW (COLORLESS)
[2021-11-15 12:46] VITALS: BP 106/65
[2021-11-15 12:54] VITALS: BP 101/61
[2021-11-15 13:27] LABS: SOURCE, BODY FLUID ALBUMIN ASCITES; SOURCE, BODY FLUID TOT PROTEIN ASCITES
== END ==
LOC: M IRPRO 11:04
PROVIDERS: ATTEND Internal Medicine Gastroenterology
DX: K70.31 Alcoholic cirrhosis of liver with ascites (principal)
CPT/HCPCS: 49083; 82042; 84157; 87070; 87205; 89051; 96365; P9047

== ENCOUNTER 2021-11-21 09:00 | Outpatient (RCR) | payer BC, OTHER ==
[~2021-11-21 09:00] MED LIST changes: -LIDOCAINE 1% MDV 20ML VIAL As Ordered ONE
== END 2021-11-27 ==
LOC: M OUTALCOH 09:00
PROVIDERS: ATTEND Psychiatry & Neurology Psychiatry
DX: F10.20 Alcohol dependence, uncomplicated (principal); F12.10 Cannabis abuse, uncomplicated

== ENCOUNTER → 2021-12-16 | Outpatient (CLI) | payer BC ==
[~2021-12-16] MED LIST changes: +LIDOCAINE 1% MDV 20ML VIAL As Ordered ONE
[2021-12-16 10:40] VITALS: BP 108/60
[2021-12-16 10:47] VITALS: BP 108/62
[2021-12-16 10:52] VITALS: BP 108/63
[2021-12-16 10:59] VITALS: BP 107/63
[2021-12-16 12:20] LABS: SOURCE, BODY FLUID ALBUMIN ASCITES; SOURCE, BODY FLUID TOT PROTEIN ASCITES; TOTAL PROTEIN, BODY FLUID 1.3 G/DL (NOT ESTABLISHED)
== END ==
LOC: M IRPRO 07:56
PROVIDERS: ATTEND Internal Medicine Gastroenterology
DX: K70.31 Alcoholic cirrhosis of liver with ascites (principal)
CPT/HCPCS: 49083; 82042; 84157; 87070; 96365; P9047

== ENCOUNTER 2021-12-23 15:00 | Outpatient (RCR) | payer BC ==
[~2021-12-23 15:00] MED LIST changes: -LIDOCAINE 1% MDV 20ML VIAL As Ordered ONE
== END 2021-12-27 ==
LOC: M OUTALCOH 15:00
PROVIDERS: ATTEND Psychiatry & Neurology Psychiatry
DX: F10.20 Alcohol dependence, uncomplicated (principal); F12.10 Cannabis abuse, uncomplicated

== ENCOUNTER → 2022-01-21 | Outpatient (CLI) | payer BC ==
[2022-01-21 08:38] VITALS: BP 90/55
[2022-01-21 08:45] VITALS: BP 96/55
[2022-01-21 08:48] VITALS: BP 96/55
[2022-01-21 08:53] VITALS: BP 103/60
[2022-01-21 08:58] VITALS: BP 98/57
[2022-01-21 09:05] VITALS: BP 98/54
[2022-01-21 09:57] LABS: SOURCE, BODY FLUID ALBUMIN ASCITES; SOURCE, BODY FLUID TOT PROTEIN ASCITES; TOTAL PROTEIN, BODY FLUID 1.1 G/DL (NOT ESTABLISHED)
[2022-01-21 12:23] LABS: APPEARANCE, BODY FLUID CLEAR (CLEAR); ASCITES FL COLOR PALE YELLOW (COLORLESS); SOURCE, BODY FLUID ASCITES
== END ==
LOC: M IRPRO 07:11
DX: K70.31 Alcoholic cirrhosis of liver with ascites (principal)
CPT/HCPCS: 49083; 82042; 84157; 87070; 87076; 87205; 89051; 96365; P9047

== ENCOUNTER → 2022-02-04 | Outpatient (CLI) | payer BC ==
[2022-02-04 08:52] VITALS: BP 113/69
[2022-02-04 09:00] VITALS: BP 110/71
[2022-02-04 09:09] VITALS: BP 105/64
[2022-02-04 09:16] VITALS: BP 109/68
[2022-02-04 09:22] LABS: ASCITES FL COLOR YELLOW (COLORLESS); SOURCE, BODY FLUID ASCITES
[2022-02-04 09:23] LABS: APPEARANCE, BODY FLUID CLEAR (CLEAR)
[2022-02-04 09:24] VITALS: BP 109/64
[2022-02-04 09:31] VITALS: BP 110/68
[2022-02-04 09:47] LABS: SOURCE, BODY FLUID ALBUMIN ASCITES; SOURCE, BODY FLUID TOT PROTEIN ASCITES; TOTAL PROTEIN, BODY FLUID 1.3 G/DL (NOT ESTABLISHED)
== END ==
LOC: M IRPRO 07:36
PROVIDERS: ATTEND Internal Medicine Gastroenterology
DX: R18.8 Other ascites (principal)
CPT/HCPCS: 49083; 82042; 84157; 87070; 87205; 89051; 96365; P9047

== ENCOUNTER → 2022-10-23 | Outpatient (CLI) | payer BC ==
[~2022-10-23] MED LIST changes: +POTA-298 PO; -POTA1TAB14 PO
[2022-10-23 16:49] LABS: BASO % 0.8 % (0.0-1.0); EOS # 0.1 10^3/uL (0.0-0.5); EOS % 3.3 % (0.0-3.0); HEMATOCRIT 29.8 % (42.0-52.0); HEMOGLOBIN 9.6 g/dl (13.5-17.5); LYMPH # 0.4 10^3/uL (1.5-5.0); LYMPH % 9.9 % (24.0-44.0); MEAN CORPUSCULAR HEMOGLOBIN 29.4 pg (27.0-33.0); MEAN CORPUSCULAR HGB CONC 32.2 g/dl (32.0-36.5); MEAN CORPUSCULAR VOLUME 91.1 fl (80.0-96.0); MONO # 0.5 10^3/uL (0.0-0.8); MONO % 13.5 % (2.0-8.0); NEUTROPHILS # 2.6 10^3/uL (1.5-8.5); NEUTROPHILS % 72.2 % (36.0-66.0); RED BLOOD COUNT 3.27 10^6/uL (4.30-6.10); WHITE BLOOD COUNT 3.6 10^3/uL (4.0-10.0)
[2022-10-23 16:57] LABS: INR 1.34; PROTHROMBIN TIME 16.8 SECONDS (12.5-14.5)
[2022-10-23 17:08] LABS: ALBUMIN 3.1 G/DL (3.2-5.2); ALKALINE PHOSPHATASE 150 U/L (46-116); ALT/SGPT 47 U/L (7.0-40); AST/SGOT 84 U/L (<34); BILIRUBIN,TOTAL 1.4 MG/DL (0.3-1.2); BLOOD UREA NITROGEN 20 MG/DL (9-23); CALCIUM LEVEL 8.5 MG/DL (8.5-10.1); CARBON DIOXIDE LEVEL 26 MMOL/L (20-31); CHLORIDE LEVEL 105 MMOL/L (98-107); CREATININE FOR GFR 0.85 MG/DL (0.70-1.30); GLOMERULAR FILTRATION RATE > 60.0 (>60); GLUCOSE, FASTING 90 MG/DL (60-100); SODIUM LEVEL 138 MMOL/L (136-145); TOTAL PROTEIN 6.4 G/DL (5.7-8.2)
[2022-10-23 17:43] LABS: PLATELET COUNT, AUTOMATED 90 10^3/uL (150-450)
== END ==
LOC: M LAB 15:27
PROVIDERS: ATTEND Internal Medicine Gastroenterology
DX: K70.31 Alcoholic cirrhosis of liver with ascites (principal)

== ENCOUNTER → 2022-11-26 | Outpatient (CLI) | payer BC ==
[2022-11-26 17:24] LABS: ALKALINE PHOSPHATASE 165 U/L (46-116); ALT/SGPT 43 U/L (7.0-40); AST/SGOT 59 U/L (<34); BILIRUBIN,TOTAL 1.1 MG/DL (0.3-1.2); BLOOD UREA NITROGEN 21 MG/DL (9-23); CALCIUM LEVEL 8.6 MG/DL (8.5-10.1); CARBON DIOXIDE LEVEL 30 MMOL/L (20-31); CHLORIDE LEVEL 102 MMOL/L (98-107); CREATININE FOR GFR 0.94 MG/DL (0.70-1.30); GLOMERULAR FILTRATION RATE > 60.0 (>60); GLUCOSE, FASTING 106 MG/DL (60-100); POTASSIUM SERUM 4.1 MMOL/L (3.5-5.1); SODIUM LEVEL 138 MMOL/L (136-145); TOTAL PROTEIN 6.6 G/DL (5.7-8.2)
[2022-11-26 17:30] LABS: INR 1.78; PROTHROMBIN TIME 20.2 SECONDS (12.5-14.5)
[2022-11-26 17:40] LABS: CA19-9 TUMOR MARKER,CARBOHYDRA 38.6 U/ML (<35.0)
== END ==
LOC: M LAB 15:49
DX: Z01.818 Encounter for other preprocedural examination (principal); K70.31 Alcoholic cirrhosis of liver with ascites; N17.9 Acute kidney failure, unspecified